=== PATIENT | female | born 1970 | race Caucasian/White ===

== ENCOUNTER 2016-04-12 12:03 | Observation (INO) | payer OTHER ==
[~2016-04-12] VITALS: Ht 167.6 cm; Wt 76.6 kg
[2016-04-12] VITALS (7 sets, daily range): BP systolic 103–125; BP diastolic 69–80; PULSE 72–86; TEMP 36.4–36.7; O2SAT 94–98; Ht 167.6 cm; Wt 76.6 kg
[~2016-04-12 12:03] MED LIST: CLOT10TR2 MT; KETO2CRE14; MOME50SP5; SNG10 PO; VYT1010 PO
[2016-04-12] MEDS ORDERED: SODIUM CHLORIDE 0.9% 1000ML 1,000 ML IV STA (12:30)
[2016-04-12 12:49] LABS: BASO % 0.3 %; BASO ABS # 0.04 K/uL (0-0.2); COMPLETE YES; EOS % 0.3 %; HEMATOCRIT 36.9 % (37-47); IG% 0.2 %; LYMPH % 16.3 %; LYMPH ABS # 2.23 K/uL (1.2-3.4); MEAN CELL VOLUME 73.9 fL (80-100); MEAN CORPUSCULAR HEMOGLOBIN 23.2 pg (25-34); MEAN CORPUSCULAR HGB CONC 31.4 g/dl (32-36); MONO % 7.7 %; NEUT % 75.2 %; PLATELET COUNT 555 K/uL (130-400); RED BLOOD COUNT 4.99 M/uL (4.2-5.4); WHITE BLOOD COUNT 13.67 K/uL (4.8-10.8)
[2016-04-12 13:15] LABS: ALT/SGPT 21 U/L (12-78); AST/SGOT 10 U/L (15-37); BLOOD UREA NITROGEN 5 mg/dl (7-18); BUN/CREATININE RATIO 5.9 (10-20); CALCIUM 9.3 mg/dl (8.5-10.1); CARBON DIOXIDE 23 mmol/L (21-32); CHLORIDE 103 mmol/L (98-107); CREATININE 0.77 mg/dl (0.60-1.20); GLUCOSE 95 mg/dl (70-99); POTASSIUM 3.6 mmol/L (3.5-5.1); SODIUM 136 mmol/L (136-145)
[2016-04-12 13:17] LABS: ALKALINE PHOSPHATASE 106 U/L (45-117)
[2016-04-12] MEDS ORDERED: FEXO1TAB58 PO (13:35)
[2016-04-12] MEDS ORDERED: PRLSR20 PO (13:35)
[2016-04-12 14:33] LABS: URINE APPEARANCE CLEAR (CLEAR); URINE BILIRUBIN NEG (NEG); URINE COLOR YELLOW; URINE NITRITE NEG (NEG); URINE PH 5.5 (4.5-7.5); UROBILINOGEN NEG (NEG); ZZUR CULT IF INDIC CLEAN CATCH NO
[2016-04-12 14:42] LABS: MANUAL MICROSCOPIC REQUIRED? NO; REVIEW REQ? NO
[2016-04-12] MEDS ORDERED: OPTIRAY 320 IV PRN (15:15)
--- NOTE | 2016-04-12 15:47 | DIAGNOSTIC IMAGING REPORT ---
CT SCAN OF THE ABDOMEN AND PELVIS WITH IV CONTRAST CLINICAL HISTORY: Right lower quadrant abdominal pain. COMPARISON STUDY: No priors. TECHNIQUE: Following the IV administration of 116 cc of Optiray 320, CT scan of the abdomen and pelvis is performed from the lung bases to the proximal femora. Images are reviewed in the axial, sagittal, and coronal planes. IV contrast was administered without complication. Automated dose control exposure was utilized. CT DOSE: 385.73 mGy.cm FINDINGS: Lung bases: The heart is normal in size and without pericardial effusion. The lung bases are clear noting dependent atelectasis. Liver: The contrast-enhanced liver is normal in size, contour, and attenuation. Focal fatty infiltration is seen adjacent to the falciform ligament. There is no intrahepatic biliary ductal dilatation. The hepatic veins and portal veins are patent. Gallbladder: Surgically absent noting clips in the gallbladder fossa. Spleen: Normal in size and attenuation. Pancreas: Unremarkable. Adrenal glands: A 1.8 cm low-attenuation right adrenal nodule meets CT criteria for a fat-containing adenoma. The left adrenal gland is normal in appearance. Kidneys: The contrast enhanced kidneys are normal in size and without hydronephrosis. The kidneys enhance symmetrically. Abdominal vasculature: The abdominal aorta is normal in course and caliber. Bowel: The small bowel and colon are normal in course and caliber. The appendix is is thick-walled, fluid-filled, and distended measuring up to 1.7 cm in diameter. This is best seen on axial image #322. There is periappendiceal inflammatory stranding and the appearance is consistent with acute appendicitis. There is no organized fluid collection to suggest abscess. Peritoneum: There is no intraperitoneal free air or abdominal ascites. There is a fat-containing umbilical hernia. Lymphadenopathy: None. Pelvic viscera: The bladder, uterus, and adnexa are normal as visualized. There are bilateral ovarian follicles. Numerous phleboliths are seen in the pelvis. Skeletal structures: No lytic or blastic lesions are seen. IMPRESSION: Findings are consistent with acute appendicitis. There is no intraperitoneal free air or evidence of abscess. Surgical consultation is advised. Electronically signed by: Jethro Vilchis M.D. 04/12/2016 3:44 PM Dictated Date/Time: 04/12/2016 3:40 PM
--- NOTE | 2016-04-12 16:41 | EMERGENCY ROOM VISIT NOTE ---
History First contact with patient: 12:21 Chief Complaint: ABDOMINAL PAIN Stated Complaint: ABDOMINAL PAIN Nursing Triage Summary: Pt presents with RLQ pain since Sat. Denies n/v/d. Seen at urgent care in [place] and sent to r/u appy. Pain in back "to my spine". Denies hx of kidney stones. Denies urinary s/sx. History of Present Illness The patient is a 45 year old female who presents to the Emergency Room with complaints of right lower quadrant pain. The patient states that she started with periumbilical abdominal pain on Tuesday but now it is located in the right lower quadrant. She admits to feeling nauseated but denies any vomiting. She had a normal bowel movement last evening. The patient denies any fever, chest pain or shortness of breath. The patient denies any urinary symptoms of frequency, urgency or dysuria or any hematuria. The patient denies any vaginal discharge. The patient states that she was seen at an urgent care in [place] and was told to come to the emergency room for evaluation of acute appendicitis. The patient's family doctor is Dr. Moura. Review of Systems 10 system review was performed and was negative unless stated otherwise history of present illness. Social History Smoking Status: Former Smoker Smokeless Tobacco Use: No Alcohol Use: none Drug Use: none Marital Status: Housing Status: lives with family Occupation Status: employed Current/Historical Medications Scheduled Fexofenadine-Pseudoephedrine (Daysi-D 24 Hour Allergy), 1 TAB PO DAILY Omeprazole (Prilosec), 20 MG PO BID Allergies Coded Allergies: Penicillins (Unverified Allergy, Severe, SWELLING AND RESPIRATORY, 04/12/16) Sulfa Drugs (Unverified Allergy, Severe, SWELLING, 04/12/16) Loratadine (Unverified Allergy, Intermediate, HIVES, 04/12/16) Moxifloxacin (Unverified Allergy, Unknown, severe swelling, 04/12/16) Physical Exam Vital Signs Date Time Temp Pulse Resp B/P Pulse Ox O2 Delivery O2 Flow Rate FiO2 04/12/16 15:45 89 18 107/62 98 Room Air 04/12/16 14:30 85 16 92/68 95 Room Air 04/12/16 13:51 79 16 111/79 97 Room Air 04/12/16 12:12 36.9 118 18 117/77 98 Room Air Physical Exam GENERAL: 45-year-old white female appears in no acute distress. MENTAL Status: Alert and oriented 3. EYES: No icterus noted MOUTH: Mucosa is moist NECK: Supple, no lymphadenopathy noted. No carotid bruits noted. LUNGS: Clear auscultation without wheezes rales or rhonchi. CARDIAC: Regular rate and rhythm without murmur. Pulses is full and equal throughout. BACK: No CVA tenderness noted. ABDOMEN: Positive bowel sounds all 4 quadrants. Soft, tenderness to palpation over the right lower quadrant with positive rebound. No organomegaly or masses noted EXTREMITIES: No cyanosis or edema noted. Medical Decision & Procedures ER Provider Diagnostic Interpretation: CT SCAN OF THE ABDOMEN AND PELVIS WITH IV CONTRAST CLINICAL HISTORY: Right lower quadrant abdominal pain. COMPARISON STUDY: No priors. TECHNIQUE: Following the IV administration of 116 cc of Optiray 320, CT scan of the abdomen and pelvis is performed from the lung bases to the proximal femora. Images are reviewed in the axial, sagittal, and coronal planes. IV contrast was administered without complication. Automated dose control exposure was utilized. CT DOSE: 385.73 mGy.cm FINDINGS: Lung bases: The heart is normal in size and without pericardial effusion. The lung bases are clear noting dependent atelectasis. Liver: The contrast-enhanced liver is normal in size, contour, and attenuation. Focal fatty infiltration is seen adjacent to the falciform ligament. There is no intrahepatic biliary ductal dilatation. The hepatic veins and portal veins are patent. Gallbladder: Surgically absent noting clips in the gallbladder fossa. Spleen: Normal in size and attenuation. Pancreas: Unremarkable. Adrenal glands: A 1.8 cm low-attenuation right adrenal nodule meets CT criteria for a fat-containing adenoma. The left adrenal gland is normal in appearance. Kidneys: The contrast enhanced kidneys are normal in size and without hydronephrosis. The kidneys enhance symmetrically. Abdominal vasculature: The abdominal aorta is normal in course and caliber. Bowel: The small bowel and colon are normal in course and caliber. The appendix is is thick-walled, fluid-filled, and distended measuring up to 1.7 cm in diameter. This is best seen on axial image #322. There is periappendiceal inflammatory stranding and the appearance is consistent with acute appendicitis. There is no organized fluid collection to suggest abscess. Peritoneum: There is no intraperitoneal free air or abdominal ascites. There is a fat-containing umbilical hernia. Lymphadenopathy: None. Pelvic viscera: The bladder, uterus, and adnexa are normal as visualized. There are bilateral ovarian follicles. Numerous phleboliths are seen in the pelvis. Skeletal structures: No lytic or blastic lesions are seen. IMPRESSION: Findings are consistent with acute appendicitis. There is no intraperitoneal free air or evidence of abscess. Surgical consultation is advised. Electronically signed by: Jethro Vilchis M.D. 04/12/2016 3:44 PM Dictated Date/Time: 04/12/2016 3:40 PM Laboratory Results 04/12/16 12:38 Red Blood Count 4.99, Mean Corpuscular Volume 73.9, Mean Corpuscular Hemoglobin 23.2, Mean Corpuscular Hemoglobin Concent 31.4, Mean Platelet Volume 9.0, Neutrophils (%) (Auto) 75.2, Lymphocytes (%) (Auto) 16.3, Monocytes (%) (Auto) 7.7, Eosinophils (%) (Auto) 0.3, Basophils (%) (Auto) 0.3, Neutrophils # (Auto) 10.28, Lymphocytes # (Auto) 2.23, Monocytes # (Auto) 1.05, Eosinophils # (Auto) 0.04, Basophils # (Auto) 0.04 04/12/16 12:38 Test 04/12/16 12:38 04/12/16 13:52 White Blood Count 13.67 K/uL (4.8-10.8) Red Blood Count 4.99 M/uL (4.2-5.4) Hemoglobin 11.6 g/dL (12.0-16.0) Hematocrit 36.9 % (37-47) Mean Corpuscular Volume 73.9 fL (80-100) Mean Corpuscular Hemoglobin 23.2 pg (25-34) Mean Corpuscular Hemoglobin Concent 31.4 g/dl (32-36) Platelet Count 555 K/uL (130-400) Mean Platelet Volume 9.0 fL (7.4-10.4) Neutrophils (%) (Auto) 75.2 % Lymphocytes (%) (Auto) 16.3 % Monocytes (%) (Auto) 7.7 % Eosinophils (%) (Auto) 0.3 % Basophils (%) (Auto) 0.3 % Neutrophils # (Auto) 10.28 K/uL (1.4-6.5) Lymphocytes # (Auto) 2.23 K/uL (1.2-3.4) Monocytes # (Auto) 1.05 K/uL (0.11-0.59) Eosinophils # (Auto) 0.04 K/uL (0-0.5) Basophils # (Auto) 0.04 K/uL (0-0.2) RDW Standard Deviation 40.3 fL (36.4-46.3) RDW Coefficient of Variation 15.3 % (11.5-14.5) Immature Granulocyte % (Auto) 0.2 % Immature Granulocyte # (Auto) 0.03 K/uL (0.00-0.02) Anion Gap 10.0 mmol/L (3-11) Est Creatinine Clear Calc Drug Dose 98.4 ml/min Estimated GFR () 109.6 Estimated GFR (Non- 94.6 BUN/Creatinine Ratio 5.9 (10-20) Calcium Level 9.3 mg/dl (8.5-10.1) Total Bilirubin 0.3 mg/dl (0.2-1) Direct Bilirubin < 0.1 mg/dl (0-0.2) Aspartate Amino Transf (AST/SGOT) 10 U/L (15-37) Alanine Aminotransferase (ALT/SGPT) 21 U/L (12-78) Alkaline Phosphatase 106 U/L (45-117) Total Protein 8.4 gm/dl (6.4-8.2) Albumin 4.0 gm/dl (3.4-5.0) Lipase 112 U/L (73-393) Urine Color YELLOW Urine Appearance CLEAR (CLEAR) Urine pH 5.5 (4.5-7.5) Urine Specific [place] 1.000 (1.000-1.030) Urine Protein NEG (NEG) Urine Glucose (UA) NEG (NEG) Urine Ketones NEG (NEG) Urine Occult Blood NEG (NEG) Urine Nitrite NEG (NEG) Urine Bilirubin NEG (NEG) Urine Urobilinogen NEG (NEG) Urine Leukocyte Esterase NEG (NEG) Medications Administered Medications (Trade) Dose Ordered Sig/Dominguez Route Start Time Stop Time Status Last Admin Dose Admin Sodium Chloride (Nss 1000ml) 1,000 ml @ 999 mls/hr Q1H1M STAT IV 04/12/16 12:30 04/12/16 13:30 DC 04/12/16 12:37 999 MLS/HR ED Course The patient was evaluated. IV access was obtained. The patient was given 1 L normal saline wide-open. CBC and differential, renal profile, LFTs and lipase levels were ordered. Urinalysis was ordered. Labs are reviewed. The patient' s white count was elevated at 13,000. Her hemoglobin and hematocrit were slightly low. The patient was offered pain medication but declined. A CT of the abdomen and pelvis with IV and oral contrast was ordered. CT of the abdomen and pelvis was interpreted by the radiologist as above with sinus consistent with acute appendicitis. The patient was informed of the findings. Dr. Vasquez was consulted and will come evaluate the patient. Medical Decision Differential diagnoses include reflux, gastritis, gastroenteritis, pancreatitis , appendicitis, mesenteric ischemia, pyelonephritis, urinary tract infection, renal colic, diverticulitis, shingles, bowel obstruction, intussusception, hernia, ovarian torsion, ruptured ovarian cyst, ectopic , . Impression Primary Impression: Appendicitis Departure Information Dispostion Being Evaluated By Surgeon Condition GOOD Referrals No Doctor, Assigned (PCP) Patient Instructions A Signature Page
[2016-04-12] MEDS ORDERED: ROCURONIUM BROMIDE 10 MG/ML 5 ML VIAL ONE ×2 (16:50→18:01)
[2016-04-12] MEDS ORDERED: DEXAMETHASONE SOD INJ 4 MG/ML VIAL ONE ×2 (16:50→18:01)
[2016-04-12] MEDS ORDERED: ONDANSETRON INJ 2 MG/ML 2 ML VIAL ONE ×2 (16:50→18:01)
[2016-04-12] MEDS ORDERED: LIDOCAINE HCL 2% 2 ML VIAL (20MG/ML) ONE ×2 (16:50→18:01)
[2016-04-12] MEDS ORDERED: PROPOFOL IV EMULSION 10 MG/ML 20 ML VIAL IV ONE ×2 (16:50→18:01)
--- NOTE | 2016-04-12 16:53 | History and Physical ---
History & Physical Date Apr 12, 2016. Chief Complaint abd pain History of Present Illness The patient is a 45 year old female with complaints of abd pain over 1-[address] evidence of acute appendicitis Additional History Hepatic Disease: No Endocrine Disorder: No Kidney Disease: No Hypertension: No Heart Disease: No Bleeding Tendencies: No Other: pt told me she is allergic to Amoxicillin , not Moxifloxicin Allergies Coded Allergies: Penicillins (Unverified Allergy, Severe, SWELLING AND RESPIRATORY, 04/12/16) Sulfa Drugs (Unverified Allergy, Severe, SWELLING, 04/12/16) Loratadine (Unverified Allergy, Intermediate, HIVES, 04/12/16) Moxifloxacin (Unverified Allergy, Unknown, severe swelling, 04/12/16) Home Medications Scheduled Fexofenadine-Pseudoephedrine (Daysi-D 24 Hour Allergy), 1 TAB PO DAILY Omeprazole (Prilosec), 20 MG PO BID Physical Examination Skin: warm/dry Eyes: sclerae normal Head: normocephalic Neck: supple Respiratory/Chest: no respiratory distress Cardiovascular: regular rate, rhythm Abdomen / GI: + pertinent finding (RLQ tenderness) Extremities: normal inspection Neurologic/Psych: alert Diagnosis acute appendicitis Plan of Treatment for Laparoscopic appendectomy, possible open operation
[2016-04-12] MEDS ORDERED: CIPROFLOXACIN 400MG / 200ML D5W ONE (16:58)
[2016-04-12] MEDS ORDERED: METRONIDAZOLE / NSS 500 MG in PREMIXED NSS 100 ML IV SCH (17:00)
[2016-04-12] MEDS ORDERED: CIPROFLOXACIN / D5W 400 MG in PREMIXED IN D5W 200 ML IV SCH (17:00)
[2016-04-12] MEDS ORDERED: HYDROmorphone INJ 1 MG/ML SYR IV PRN (17:30)
[2016-04-12] MEDS ORDERED: ATROPINE SULFATE 0.1 MG/ML 5ML SYR IV PRN (17:30)
[2016-04-12] MEDS ORDERED: ONDANSETRON INJ 2 MG/ML 2 ML VIAL IV PRN ×2 (17:30→18:45)
[2016-04-12] MEDS ORDERED: EpHEDrine SULFATE INJ 50 MG/ML AMP IV PRN (17:30)
[2016-04-12] MEDS ORDERED: MIDAZOLAM HCL 1 MG/ML 2ML VIAL ONE (17:32)
[2016-04-12] MEDS ORDERED: FENTANYL CITRATE INJ 50 MCG/1 ML 2 ML VIAL ONE ×2 (17:33→18:31)
[2016-04-12] MEDS ORDERED: NEOSTIGMINE METHYLSULFATE 5 MG/5 ML SYR ONE (18:01)
[2016-04-12] MEDS ORDERED: SUCCINYLCHOLINE CHLORIDE 20 MG/ML 10 ML VIAL IV ONE (18:01)
[2016-04-12] MEDS ORDERED: GLYCOPYRROLATE INJ 0.2 MG/ML VIAL ONE (18:01)
[2016-04-12] MEDS ORDERED: BUPIVACAINE 0.5 % 5 MG/1 ML MPF 30ML VIAL INJ ONE (18:28)
[2016-04-12] MEDS: LACTATED RINGER'S 1000ML 1,000 ML IV SCH (18:36)
--- NOTE | 2016-04-12 18:36 | [facility] Operative Report ---
Operative Report Operative Date Apr 12, 2016. Pre-Operative Diagnosis Acute Appendicitis Post-Operative Diagnosis same Procedure(s) Performed lap appendectomy Surgeon Dr. Vasquez Internal Communications Specialist Surgeon(s) None Findings non perforated acute appendicitis Specimens A. Appendix Anesthesia gen Complication(s) None Disposition Recovery Room / PACU I attest to the content of the Intraoperative Record and any orders documented therein. Any exceptions are noted below.
[2016-04-12] MEDS ORDERED: PROMETHAZINE HCL INJ 25 MG in SODIUM CHLORIDE 0.9% 50ML 50 ML IV PRN (18:45)
[2016-04-12] MEDS ORDERED: MoRPHine SULFATE 2 MG/ML CARP IV PRN (18:45)
[2016-04-12] MEDS ORDERED: HYDR-5688 PO (18:45)
[2016-04-12] MEDS ORDERED: HYDROCODONE/ACETAMOPHEN 5/325MG TAB PO PRN ×2 (18:45)
[2016-04-12] MEDS ORDERED: MoRPHine SULFATE 4 MG/ML 1 ML CARP\\VIAL IV PRN (18:45)
--- NOTE | 2016-04-12 18:47 | Discharge Instructions ---
Discharge Instructions Admission Reason for Admission: Abdominal Pain Discharge Discharge Diagnosis / Problem: appendicitis Discharge Goals Goal(s): Decrease discomfort, Improve function, Improve disease control Activity Recommendations Activity Limitations: as noted below Lifting Limitations: no more than 10 pounds Exercise/Sports Limitations: until after follow-up appointment May Resume Sexual Activity: when tolerated Shower/Bathe: keep incision dry (may shower over incision Wed 04/14) Driving or Machine Use: resume 3 days after discharge . Instructions / Follow-Up Instructions / Follow-Up SPECIAL CARE INSTRUCTIONS: * Cover incisions and change daily for comfort/drainage. may leave uncovered with dermabond * Leave steri strips in place * May use ibuprofen for pain as tolerated. * Expect some swelling and bruising. Call your doctor if: * Temperature above 101 degrees * Pain not relieved by pain medicine ordered * There is increased drainage or redness from any incision * You have any unanswered questions or concerns [phone]. FOLLOW UP VISIT: If not already scheduled, please call the office for a follow-up visit. for 2 weeks- check up OFFICE PHONE NUMBER: Dr. Vasquez Office Current Hospital Diet Patient's current hospital diet: Regular Diet Discharge Diet Recommended Diet: Regular Diet Procedures Procedures Performed: Laparoscopic Appendectomy Pending Studies Studies pending at discharge: no Medical Emergencies . Who to Call and When: Medical Emergencies: If at any time you feel your situation is an emergency, please call 911 immediately. . Non-Emergent Contact Non-Emergency issues call your: Surgeon . "Provider Documentation" section prepared by Scott Vasquez. VTE Core Measure Inpt VTE Proph given/why not?: SCD's
--- NOTE | 2016-04-12 18:50 | OPERATIVE REPORT ---
DATE OF OPERATION: 04/12/2016 NAME OF OPERATION: Laparoscopic appendectomy. PREOPERATIVE DIAGNOSIS: Acute appendicitis. POSTOPERATIVE DIAGNOSIS: Same. STAFF SURGEON: Scott Vasquez MD ANESTHESIA: General. PROCEDURE: The patient was brought in the operating room and placed on the operating table in supine position. Flores catheter was placed. Her abdomen was prepped and draped in usual fashion. Using 0.5% plain Marcaine, all incisions were anesthetized. Incision was made above the umbilicus, carrying dissection down to the fascia, placing a Veress needle producing pneumoperitoneum. A 5 mm port was placed at this level and under visualization, a second 5 mm port was placed suprapubically and a 12 mm port placed in the left lower quadrant. On inspection and examination, the appendix was identified, it was thickened and inflamed. The base of the appendix was dissected using a [place] dissector and then an Endo-RADHA used to transect the base. Mesoappendix was then dissected free and then transected using Endo-RADHA. After appropriate irrigation and hemostasis, the appendix was placed in an Endobag and removed through the 12 mm site. All ports were then removed. The 12 mm site closed using 0 Vicryl suture and then the skin reapproximated using subcuticular 4-0 Monocryl and Dermabond for the umbilical and suprapubic area and Steri-Strips for the left lower quadrant. The patient was transferred to recovery room in stable condition. There was no abscess noted. I attest to the content of the Intraoperative Record and any orders documented therein. Any exceptio ns are noted below.
[2016-04-12] MEDS: FENTANYL CITRATE INJ 50 MCG/1 ML 2 ML VIAL IV PRN ×2 (18:57→19:02)
--- NOTE | 2016-04-12 19:04 | Anesthesiology Progress Note ---
Anesthesia Post Op Note Date & Time Apr 12, 2016 at 19:04 Vital Signs Pain Intensity: 5.0 Vital Signs Past 12 Hours Date Time Temp Pulse Resp B/P Pulse Ox O2 Delivery O2 Flow Rate FiO2 04/12/16 18:55 78 18 120/77 100 Mask 10 04/12/16 18:45 86 17 126/81 100 Mask 10 04/12/16 18:43 36.2 88 17 125/82 99 Mask 10 04/12/16 15:45 89 18 107/62 98 Room Air 04/12/16 14:30 85 16 92/68 95 Room Air 04/12/16 13:51 79 16 111/79 97 Room Air 04/12/16 12:12 36.9 118 18 117/77 98 Room Air Notes Mental Status: alert / awake / arousable, participated in evaluation Pt Amnestic to Procedure: Yes Nausea / Vomiting: adequately controlled Pain: adequately controlled Airway Patency, RR, SpO2: stable & adequate BP & HR: stable & adequate Hydration State: stable & adequate Anesthetic Complications: no major complications apparent
[2016-04-12] MEDS ORDERED: IV FLUIDS COMPLETED PRN (20:00)
[2016-04-12] MEDS: PANTOprazole SOD 40 MG TAB PO SCH (21:59)
[2016-04-12] MEDS: CEFOXITIN IV 1,000 MG in DEXTROSE 5% 50ML 50 ML IV SCH (21:59)
[2016-04-13 03:00] VITALS: BP 93/61; PULSE 78; TEMP 36.8; O2SAT 94
[2016-04-13] MEDS: CEFOXITIN IV 1,000 MG in DEXTROSE 5% 50ML 50 ML IV SCH (06:00)
--- NOTE | 2016-04-13 06:16 | Surgery Progress Note ---
Surgery Progress Note Date of Service Apr 13, 2016. Subjective + diet (tolerating food), + feeling well, No nausea, No vomiting Objective Vital Signs: Date Time Temp Pulse Resp B/P Pulse Ox O2 Delivery O2 Flow Rate FiO2 04/13/16 03:00 36.8 78 18 93/61 94 Room Air 04/12/16 23:12 36.7 86 18 103/69 94 Room Air 04/12/16 22:30 36.6 80 18 125/79 96 Room Air 04/12/16 21:37 36.5 74 18 122/75 95 Room Air 04/12/16 20:30 36.6 83 18 119/80 96 Nasal Cannula 2.0 04/12/16 20:00 36.4 73 18 115/72 96 Nasal Cannula 2.0 04/12/16 19:30 Nasal Cannula 2.0 04/12/16 19:30 Nasal Cannula 2.0 04/12/16 19:30 36.5 72 18 113/72 96 Nasal Cannula 2.0 04/12/16 19:15 36.2 89 18 121/72 100 Nasal Cannula 2 04/12/16 19:05 82 18 123/82 100 Nasal Cannula 2 04/12/16 18:55 78 18 120/77 100 Mask 10 04/12/16 18:45 86 17 126/81 100 Mask 10 04/12/16 18:43 36.2 88 17 125/82 99 Mask 10 04/12/16 15:45 89 18 107/62 98 Room Air 04/12/16 14:30 85 16 92/68 95 Room Air 04/12/16 13:51 79 16 111/79 97 Room Air 04/12/16 12:12 36.9 118 18 117/77 98 Room Air General Appearance: no apparent distress Respiratory/Chest: no respiratory distress Abdomen: non distended, soft Incision(s): dry, intact Laboratory Results: Results Past 24 Hours Test 04/12/16 12:38 04/12/16 13:52 Range/Units White Blood Count 13.67 4.8-10.8 K/uL Red Blood Count 4.99 4.2-5.4 M/uL Hemoglobin 11.6 12.0-16.0 g/dL Hematocrit 36.9 37-47 % Mean Corpuscular Volume 73.9 80-100 fL Mean Corpuscular Hemoglobin 23.2 25-34 pg Mean Corpuscular Hemoglobin Concent 31.4 32-36 g/dl Platelet Count 555 130-400 K/uL Mean Platelet Volume 9.0 7.4-10.4 fL Neutrophils (%) (Auto) 75.2 % Lymphocytes (%) (Auto) 16.3 % Monocytes (%) (Auto) 7.7 % Eosinophils (%) (Auto) 0.3 % Basophils (%) (Auto) 0.3 % Neutrophils # (Auto) 10.28 1.4-6.5 K/uL Lymphocytes # (Auto) 2.23 1.2-3.4 K/uL Monocytes # (Auto) 1.05 0.11-0.59 K/uL Eosinophils # (Auto) 0.04 0-0.5 K/uL Basophils # (Auto) 0.04 0-0.2 K/uL RDW Standard Deviation 40.3 36.4-46.3 fL RDW Coefficient of Variation 15.3 11.5-14.5 % Immature Granulocyte % (Auto) 0.2 % Immature Granulocyte # (Auto) 0.03 0.00-0.02 K/uL Sodium Level 136 136-145 mmol/L Potassium Level 3.6 3.5-5.1 mmol/L Chloride Level 103 98-107 mmol/L Carbon Dioxide Level 23 21-32 mmol/L Anion Gap 10.0 3-11 mmol/L Blood Urea Nitrogen 5 7-18 mg/dl Creatinine 0.77 0.60-1.20 mg/dl Est Creatinine Clear Calc Drug Dose 98.4 ml/min Estimated GFR () 109.6 Estimated GFR (Non- 94.6 BUN/Creatinine Ratio 5.9 10-20 Random Glucose 95 70-99 mg/dl Calcium Level 9.3 8.5-10.1 mg/dl Total Bilirubin 0.3 0.2-1 mg/dl Direct Bilirubin < 0.1 0-0.2 mg/dl Aspartate Amino Transf (AST/SGOT) 10 15-37 U/L Alanine Aminotransferase (ALT/SGPT) 21 12-78 U/L Alkaline Phosphatase 106 45-117 U/L Total Protein 8.4 6.4-8.2 gm/dl Albumin 4.0 3.4-5.0 gm/dl Lipase 112 73-393 U/L Urine Color YELLOW Urine Appearance CLEAR CLEAR Urine pH 5.5 4.5-7.5 Urine Specific [place] 1.000 1.000-1.030 Urine Protein NEG NEG Urine Glucose (UA) NEG NEG Urine Ketones NEG NEG Urine Occult Blood NEG NEG Urine Nitrite NEG NEG Urine Bilirubin NEG NEG Urine Urobilinogen NEG NEG Urine Leukocyte Esterase NEG NEG Assessment & Plan 04/13/16- s/p laparoscopic appendectomy- doing well for d/c home this am, no atbx at home
[2016-04-13] MEDS: LACTATED RINGER'S 1000ML 1,000 ML IV SCH (07:56)
[2016-04-13 08:04] VITALS: BP 99/64; PULSE 93; TEMP 36.7; O2SAT 93
[2016-04-13] MEDS: PANTOprazole SOD 40 MG TAB PO SCH (08:36)
--- NOTE | 2016-04-13 09:50 | Anesthesiology Progress Note ---
Anesthesia Post Op Note Date & Time Apr 13, 2016 at 09:49 Vital Signs Pain Intensity: 0.0 Vital Signs Past 12 Hours Date Time Temp Pulse Resp B/P Pulse Ox O2 Delivery O2 Flow Rate FiO2 04/13/16 08:04 36.7 93 16 99/64 93 Room Air 04/13/16 07:25 Room Air 04/13/16 03:00 36.8 78 18 93/61 94 Room Air 04/12/16 23:12 36.7 86 18 103/69 94 Room Air 04/12/16 22:30 36.6 80 18 125/79 96 Room Air Notes Mental Status: alert / awake / arousable, participated in evaluation Pt Amnestic to Procedure: Yes Nausea / Vomiting: adequately controlled Pain: adequately controlled Airway Patency, RR, SpO2: stable & adequate BP & HR: stable & adequate Hydration State: stable & adequate Anesthetic Complications: no major complications apparent
[2016-04-13 10:11] VITALS: BP 99/64; PULSE 93; TEMP 36.7; O2SAT 93
--- NOTE | 2016-04-20 10:48 | DISCHARGE SUMMARY ---
PRIMARY DISCHARGE DIAGNOSIS: Acute appendicitis. PROCEDURE PERFORMED: Laparoscopic appendectomy. HOSPITAL COURSE: The patient is a 45-year-old female who presented to the Emergency Department with 2 days of abdominal pain. Her white count was 13,000. CT was consistent with acute appendicitis. She was taken to the operating room that evening for laparoscopic appendectomy. Procedure was well tolerated. She was transferred to the surgical floor for overnight observation. In the morning, she was tolerating diet and oral analgesics. Her abdomen was benign. She was stable for discharge. DISCHARGE INSTRUCTIONS: Discharge home. Follow up with Dr. Vasquez in 2 weeks. DISCHARGE MEDICATIONS: [place] 1-2 tablets every 6 hours as needed; resume her home medications Prilosec 20 mg b.i.d., and Daysi-D 1 tablet daily.
== END 2016-04-13 10:25 | disposition home or self-care (01) ==
LOC: ENRESERVDT → ENRESERVTM → C.EDB 12:08 → C.3E 18:40
PROVIDERS: ADMIT Surgery; ATTEND Surgery
DX: K35.80 Unspecified acute appendicitis (principal); K42.9 Umbilical hernia without obstruction or gangrene; K76.0 Fatty (change of) liver, not elsewhere classified; Z87.891 Personal history of nicotine dependence

== ENCOUNTER 2016-05-26 17:19 | Emergency (ER) | payer OTHER ==
[~2016-05-26] VITALS: Ht 167.6 cm; Wt 75.7 kg
[~2016-05-26 17:19] MED LIST changes: -CLOT10TR2 MT; +FEXO1TAB58 PO; +HYDR-5688 PO; -KETO2CRE14; -MOME50SP5; +PRLSR20 PO; -SNG10 PO; -VYT1010 PO
[2016-05-26 17:27] VITALS: TEMP 36.4; Ht 167.6 cm; Wt 75.7 kg
[2016-05-26 17:55] VITALS: O2SAT 99
[2016-05-26] MEDS ORDERED: ASPIRIN 324 MG CHEW PO STA (18:07)
[2016-05-26 18:26] LABS: BASO % 0.4 %; BASO ABS # 0.04 K/uL (0-0.2); COMPLETE YES; EOS % 1.7 %; HEMATOCRIT 34.5 % (37-47); IG% 0.4 %; LYMPH % 26.9 %; LYMPH ABS # 2.57 K/uL (1.2-3.4); MEAN CELL VOLUME 74.4 fL (80-100); MEAN CORPUSCULAR HEMOGLOBIN 23.7 pg (25-34); MEAN CORPUSCULAR HGB CONC 31.9 g/dl (32-36); MEAN PLATELET VOLUME 9.4 fL (7.4-10.4); MONO % 9.3 %; NEUT % 61.3 %; PLATELET COUNT 456 K/uL (130-400); RED BLOOD COUNT 4.64 M/uL (4.2-5.4); WHITE BLOOD COUNT 9.54 K/uL (4.8-10.8)
--- NOTE | 2016-05-26 18:41 | DIAGNOSTIC IMAGING REPORT ---
CHEST ONE VIEW PORTABLE HISTORY: Dyspnea and Chest pain, left COMPARISON: Chest 04/28/2008. FINDINGS: The lungs are clear. Cardiac silhouette is normal in size. No pleural effusions. No pneumothorax. Stable left hilar prominence. IMPRESSION: No significant change compared to the prior study. No acute process. Electronically signed by: Clement Villegas M.D. 05/26/2016 6:40 PM Dictated Date/Time: 05/26/2016 6:39 PM
[2016-05-26 18:48] LABS: ALT/SGPT 17 U/L (12-78); AST/SGOT 10 U/L (15-37); BLOOD UREA NITROGEN 2 mg/dl (7-18); BUN/CREATININE RATIO 3.4 (10-20); CALCIUM 8.4 mg/dl (8.5-10.1); CARBON DIOXIDE 26 mmol/L (21-32); CHLORIDE 104 mmol/L (98-107); CREATININE 0.65 mg/dl (0.60-1.20); GLUCOSE 80 mg/dl (70-99); MAGNESIUM 2.1 mg/dl (1.8-2.4); POTASSIUM 3.6 mmol/L (3.5-5.1); SODIUM 139 mmol/L (136-145)
[2016-05-26] MEDS ORDERED: FEXO1TAB49 PO (18:52)
[2016-05-26 18:58] LABS: ALB/GLOB RATIO 0.9 (0.9-2); ALKALINE PHOSPHATASE 97 U/L (45-117)
[2016-05-26] MEDS ORDERED: OPTIRAY 320 IV PRN (19:15)
[2016-05-26 19:31] LABS: URINE APPEARANCE CLEAR (CLEAR); URINE BILIRUBIN NEG (NEG); URINE COLOR YELLOW; URINE NITRITE NEG (NEG); URINE PH 7.5 (4.5-7.5); UROBILINOGEN NEG (NEG); ZZUR CULT IF INDIC CLEAN CATCH NO
[2016-05-26 19:36] LABS: MANUAL MICROSCOPIC REQUIRED? NO; REVIEW REQ? NO
--- NOTE | 2016-05-26 19:39 | DIAGNOSTIC IMAGING REPORT ---
CHEST CTA for PULMONARY ARTERIES CT DOSE: 302.77 mGy.cm HISTORY: Atypical chest pain. Elevated d-dimer. TECHNIQUE: Multiaxial CT images of the chest were performed following the intravenous administration of contrast to evaluate the pulmonary arteries. Maximal intensity projection images were also obtained. COMPARISON STUDY: Chest 05/26/2016. FINDINGS: There is a normal caliber thoracic aorta with no evidence for dissection. There is no evidence for pulmonary embolus. No pleural effusions. No pneumothorax. The liver and spleen are unremarkable. No mediastinal or hilar lymphadenopathy. The central airways are patent. Groundglass densities within the lower lobes posteriorly favor mild dependent change. A 3.7 mm pulmonary nodule within the right middle lobe on image 60. A 5 mm nodule within the lingula on image 41. Cholecystectomy. IMPRESSION: 1. No evidence for bone embolus. 2. Subcentimeter pulmonary nodules with the largest in the lingula measuring 5 mm. Please refer to the chart below for recommended follow-up. Please refer to below summary of Fleischner criteria recommendations for follow-up of incidental CT nodules (Bhanu Bains, Guidelines for management of small pulmonary nodules detected on CT scans: A statement from the Fleischner Society, Radiology 237: [id number].) Low Risk Patient: Minimal or no smoking or other known risk factors for malignancy <=4 mm: No follow-up needed. >4-6 mm: Initial follow-up CT at 12 months; if unchanged, no further follow-up. >6-8 mm: Initial follow-up CT at 6-12 months then at 18-24 months if no change. >8 mm: Follow-up CT at \R\3, 9, 24 months, or PET and/or biopsy. High Risk Patient: History of smoking or other known risk factors <=4 mm: Follow-up at 12 months; if unchanged, no further follow-up. >4-6 mm: Initial follow-up CT at 6-12 months then at 18-24 months if no change. >6-8 mm: Initial follow-up CT at 3-6 months then at 9-12 and 24 months if no change. >8 mm: Same as low risk patient. Note: Nodule size measured as average of length and width. Ground glass or partly solid nodules may require longer follow-up to exclude indolent adenocarcinoma. Electronically signed by: Clement Villegas M.D. 05/26/2016 7:37 PM Dictated Date/Time: 05/26/2016 7:29 PM
[2016-05-26 19:50] LABS: PARTIAL THROMBOPLASTIN RATIO 1.1; PROTHROMBIN TIME (PATIENT) 10.4 SECONDS (9.0-12.0)
--- NOTE | 2016-05-26 20:21 | EMERGENCY ROOM VISIT NOTE ---
History First contact with patient: 17:52 Chief Complaint: CHEST PAIN Stated Complaint: CHEST PAIN, PAIN IN ARM & NECK, SOB, DIZZY Nursing Triage Summary: pt reports L side chest pain that started on Tuesday , denies cough or congestion, describes as a dull ache and radiates into back and L arm pt denies injury History of Present Illness The patient is a 45 year old female who presents to the Emergency Room via private vehicle accompanied by male with complaints of "chest pain, pain in arm , neck, shortness of breath, dizzy". The patient states that Tuesday night and Tuesday morning she felt achy head to toe, and then develop chest pain and left anterior chest that slowly progressed since then. She describes the pain as dull initially, which has progressed a sharp pain under left breast that radiates into her left scapular region and into her neck. She rates the pain as a 5-6/10. There has been associated shortness of breath and cough. Patient is a former smoker. She admits to associated fevers and chills. She also notes that 2 weeks ago she had a constant pain behind left knee, and had ultrasound performed by her family doctor which revealed no blood clots. She denies any recent trauma, injury, heart history, blood clots, recent travel. Review of Systems A complete 10-point Review of Systems was discussed with the patient, with pertinent positives and negatives listed in the History of Present Illness. All remaining Review of Systems questions can be considered negative unless otherwise specified. Past Medical/Surgical History Acid reflux Family History Heart disease, cancer. Social History Smoking Status: Former Smoker Alcohol Use: none Drug Use: none Marital Status: Housing Status: lives with family Occupation Status: employed Social History: Patient lives at home. Current/Historical Medications Scheduled Fexofenadine Hcl (Daysi Allergy), 180 MG PO QAM Omeprazole (Prilosec), 20 MG PO BID Allergies Coded Allergies: Penicillins (Verified Allergy, Severe, SWELLING AND RESPIRATORY, 05/26/16) Sulfa Drugs (Verified Allergy, Severe, SWELLING, 05/26/16) Latex (Verified Allergy, Intermediate, RASH, 05/26/16) Loratadine (Verified Allergy, Intermediate, HIVES, 05/26/16) Moxifloxacin (Verified Allergy, Intermediate, swelling/SOB, 05/26/16) Amoxicillin (Verified Allergy, Unknown, SWELLING, 05/26/16) Physical Exam Vital Signs Date Time Temp Pulse Resp B/P Pulse Ox O2 Delivery O2 Flow Rate FiO2 05/26/16 20:55 84 19 124/77 97 05/26/16 20:08 84 19 124/77 97 Room Air 05/26/16 18:29 86 05/26/16 18:28 107/72 05/26/16 18:19 87 18 95 05/26/16 17:59 128/80 05/26/16 17:55 99 Room Air 05/26/16 17:27 36.4 98 18 129/87 98 Room Air Physical Exam VITAL SIGNS - Vital signs and nursing notes were reviewed. Patient is afebrile , normotensive, non-tachycardic and saturating well on room air 98%. GENERAL -45-year-old female appearing her stated age who is in no acute distress. Communicates well with provider and answers questions appropriately. SKIN - Without rashes. No petechial rashes. HEAD - NC/AT. EYES - PERRL with EOMI bilaterally. Sclera anicteric. Palpebral conjunctiva pink and moist with no injection noted. EARS - No deformities of external structures noted on gross examination bilaterally. No pain elicited with palpation of the tragus bilaterally. External auditory canals without discharge or otorrhea. Tympanic membranes pearly matos without retraction or bulging. No fluid or purulent material visualized behind the TM. Handle of malleus, umbo, cone of light, pars tensa/ flaccid all easily visualized. NOSE - Midline and without cyanosis. No epistaxis or purulent drainage noted. Septum midline without deviation or septal hematoma noted. MOUTH/OROPHARYNX - Without perioral cyanosis. Buccal mucosa pink and moist and without leukoplakia. Tongue midline with equal elevation of palate bilaterally. No tonsillar hypertrophy, erythema, or exudates noted. Good dentition noted. NECK - Neck with FROM. Supple to palpation. No lymphadenopathy noted. No nuchal rigidity. LUNGS - Chest wall symmetric without accessory muscle use, intercostals retractions, or central cyanosis. Normal vesicular breath sounds CTA B/L. No wheezes, rales, or rhonchi appreciated. CARDIAC - RRR with S1/S2. No murmur, rubs, or gallops appreciated. ABDOMEN - Abdominal contour without pulsations or visible masses. BS normoactive all four quadrants. No tenderness, palpable masses, hepatosplenomegaly, or ascites noted. EXTREMITIES - No clubbing or peripheral cyanosis. No pretibial edema present. +5 /5 strength noted in UE/LE bilaterally. NEUROLOGIC - Cranial nerves II through XII grossly intact. Sensory intact to light touch throughout. PSYCH - A&Ox3 and cooperates fully with examiner. Pt is very pleasant and interacts well with examiner. Medical Decision & Procedures ER Provider Diagnostic Interpretation: CHEST ONE VIEW PORTABLE HISTORY: Dyspnea and Chest pain, left COMPARISON: Chest 04/28/2008. FINDINGS: The lungs are clear. Cardiac silhouette is normal in size. No pleural effusions. No pneumothorax. Stable left hilar prominence. IMPRESSION: No significant change compared to the prior study. No acute process. Electronically signed by: Clement Villegas M.D. 05/26/2016 6:40 PM Dictated Date/Time: 05/26/2016 6:39 PM CHEST CTA for PULMONARY ARTERIES CT DOSE: 302.77 mGy.cm HISTORY: Atypical chest pain. Elevated d-dimer. TECHNIQUE: Multiaxial CT images of the chest were performed following the intravenous administration of contrast to evaluate the pulmonary arteries. Maximal intensity projection images were also obtained. COMPARISON STUDY: Chest 05/26/2016. FINDINGS: There is a normal caliber thoracic aorta with no evidence for dissection. There is no evidence for pulmonary embolus. No pleural effusions. No pneumothorax. The liver and spleen are unremarkable. No mediastinal or hilar lymphadenopathy. The central airways are patent. Groundglass densities within the lower lobes posteriorly favor mild dependent change. A 3.7 mm pulmonary nodule within the right middle lobe on image 60. A 5 mm nodule within the lingula on image 41. Cholecystectomy. IMPRESSION: 1. No evidence for bone embolus. 2. Subcentimeter pulmonary nodules with the largest in the lingula measuring 5 mm. Please refer to the chart below for recommended follow-up. Please refer to below summary of Fleischner criteria recommendations for follow-up of incidental CT nodules (Bhanu Bains, Guidelines for management of small pulmonary nodules detected on CT scans: A statement from the Fleischner Society, Radiology 237: [phone].) Low Risk Patient: Minimal or no smoking or other known risk factors for malignancy <=4 mm: No follow-up needed. >4-6 mm: Initial follow-up CT at 12 months; if unchanged, no further follow-up. >6-8 mm: Initial follow-up CT at 6-12 months then at 18-24 months if no change. >8 mm: Follow-up CT at \\R\\3, 9, 24 months, or PET and/or biopsy. High Risk Patient: History of smoking or other known risk factors <=4 mm: Follow-up at 12 months; if unchanged, no further follow-up. >4-6 mm: Initial follow-up CT at 6-12 months then at 18-24 months if no change. >6-8 mm: Initial follow-up CT at 3-6 months then at 9-12 and 24 months if no change. >8 mm: Same as low risk patient. Note: Nodule size measured as average of length and width. Ground glass or partly solid nodules may require longer follow-up to exclude indolent adenocarcinoma. Electronically signed by: Clement Villegas M.D. 05/26/2016 7:37 PM Dictated Date/Time: 05/26/2016 7:29 PM Laboratory Results 05/26/16 18:15 Red Blood Count 4.64, Mean Corpuscular Volume 74.4, Mean Corpuscular Hemoglobin 23.7, Mean Corpuscular Hemoglobin Concent 31.9, Mean Platelet Volume 9.4, Neutrophils (%) (Auto) 61.3, Lymphocytes (%) (Auto) 26.9, Monocytes (%) (Auto) 9.3, Eosinophils (%) (Auto) 1.7, Basophils (%) (Auto) 0.4, Neutrophils # (Auto) 5.84, Lymphocytes # (Auto) 2.57, Monocytes # (Auto) 0.89, Eosinophils # (Auto) 0.16, Basophils # (Auto) 0.04 05/26/16 18:15 Test 05/26/16 18:05 05/26/16 18:10 05/26/16 18:15 05/26/16 18:27 Influenza Type A Antigen Neg for Influ A (NEG) Influenza Type B Antigen Neg for Influ B (NEG) White Blood Count 9.54 K/uL (4.8-10.8) Red Blood Count 4.64 M/uL (4.2-5.4) Hemoglobin 11.0 g/dL (12.0-16.0) Hematocrit 34.5 % (37-47) Mean Corpuscular Volume 74.4 fL (80-100) Mean Corpuscular Hemoglobin 23.7 pg (25-34) Mean Corpuscular Hemoglobin Concent 31.9 g/dl (32-36) Platelet Count 456 K/uL (130-400) Mean Platelet Volume 9.4 fL (7.4-10.4) Neutrophils (%) (Auto) 61.3 % Lymphocytes (%) (Auto) 26.9 % Monocytes (%) (Auto) 9.3 % Eosinophils (%) (Auto) 1.7 % Basophils (%) (Auto) 0.4 % Neutrophils # (Auto) 5.84 K/uL (1.4-6.5) Lymphocytes # (Auto) 2.57 K/uL (1.2-3.4) Monocytes # (Auto) 0.89 K/uL (0.11-0.59) Eosinophils # (Auto) 0.16 K/uL (0-0.5) Basophils # (Auto) 0.04 K/uL (0-0.2) RDW Standard Deviation 42.3 fL (36.4-46.3) RDW Coefficient of Variation 15.7 % (11.5-14.5) Immature Granulocyte % (Auto) 0.4 % Immature Granulocyte # (Auto) 0.04 K/uL (0.00-0.02) Anion Gap 9.0 mmol/L (3-11) Est Creatinine Clear Calc Drug Dose 116.0 ml/min Estimated GFR () 126.0 Estimated GFR (Non- 108.7 BUN/Creatinine Ratio 3.4 (10-20) Calcium Level 8.4 mg/dl (8.5-10.1) Magnesium Level 2.1 mg/dl (1.8-2.4) Total Bilirubin 0.2 mg/dl (0.2-1) Aspartate Amino Transf (AST/SGOT) 10 U/L (15-37) Alanine Aminotransferase (ALT/SGPT) 17 U/L (12-78) Alkaline Phosphatase 97 U/L (45-117) Total Creatine Kinase 83 U/L (26-192) Creatine Kinase MB < 0.5 ng/ml (0.5-3.6) Creatine Kinase MB Ratio (0-3.0) Total Protein 7.2 gm/dl (6.4-8.2) Albumin 3.5 gm/dl (3.4-5.0) Globulin 3.7 gm/dl (2.5-4.0) Albumin/Globulin Ratio 0.9 (0.9-2) Thyroid Stimulating Hormone (TSH) 1.840 uIu/ml (0.300-4.500) Bedside D-Dimer > 450 ng/mlFEU (0-450) Test 05/26/16 19:15 05/26/16 19:32 05/26/16 19:43 Urine Color YELLOW Urine Appearance CLEAR (CLEAR) Urine pH 7.5 (4.5-7.5) Urine Specific [place] 1.000 (1.000-1.030) Urine Protein NEG (NEG) Urine Glucose (UA) NEG (NEG) Urine Ketones NEG (NEG) Urine Occult Blood NEG (NEG) Urine Nitrite NEG (NEG) Urine Bilirubin NEG (NEG) Urine Urobilinogen NEG (NEG) Urine Leukocyte Esterase NEG (NEG) Prothrombin Time 10.4 SECONDS (9.0-12.0) Prothromb Time International Ratio 1.0 (0.9-1.1) Activated Partial Thromboplast Time 29.3 SECONDS (21.0-31.0) Partial Thromboplastin Ratio 1.1 Bedside Troponin I 0.000 ng/ml (0-0.045) Medications Administered Medications (Trade) Dose Ordered Sig/Dominguez Route Start Time Stop Time Status Last Admin Dose Admin Aspirin (Aspirin Chew) 324 mg NOW STAT PO 05/26/16 18:07 05/26/16 18:11 DC 05/26/16 18:38 324 MG Medical Decision Patient was seen and evaluated as above. After obtaining a thorough history and physical examination IV access was obtained and the above workup was initiated. There was concern for pulmonary embolism and myocardial infarction therefore attention was directed at these regions. Stat EKG revealed sinus rhythm with marked sinus arrhythmia, rate of 70 bpm. There are no priors for comparison. On this EKG there are no evidences of ectopy or ischemic change. Patient's initial point of care d-dimer was elevated. Initial troponin was negative. Due to the elevated d-dimer, yet stable chest x-ray, patient was sent to CT for potential pulmonary embolism. Benefits versus risk was discussed with the patient. This did not reveal any pulmonary embolism. Incidental findings discussed with patient and regarding CT follow-up. Patient was given aspirin but declined any pain medication. Her vital signs are stable. There is no leukocytosis, but slight anemia. This will not require any intervention. There are abnormalities noted within the blood work that her nonemergent, these were discussed with the patient and she indicated that she just have blood work done 2 weeks ago with her family doctor. I do believe this is appropriate. CMP reveals decreased BUN, low calcium, low AST. Troponin negative 2. TSH within normal limits. Urine negative. Point care test negative. Patient negative for flu. I do not suspect any emergent cause of the patient's symptoms at this time. She was educated upon today's findings as well as management. She was instructed to follow-up with her family doctor regarding today's visit. She had questions answered prior to discharge, was educated upon worrisome symptoms in which to return and was discharged home in good condition. In the evaluation treatment this patient the following differential diagnoses were entertained: Myocardial infarction, pulmonary embolism, costochondritis, pleurisy, pericarditis, among others. Impression Primary Impression: Chest wall pain Additional Impressions: Anemia Pulmonary nodule less than 6 cm determined by computed tomography of lung Departure Information Dispostion Home / Self-Care Condition GOOD Referrals Farhat Moura D.O. (PCP) Patient Instructions My [facility] Additional Instructions You were seen in the emergency department for chest pain. We have ruled out emergent causes at this time. It is recommended he follow-up with her family doctor by calling their office first thing tomorrow morning to schedule follow-up. Please return to emergency department with any new/concerning symptoms. We are here 24 7 for any questions, concerns. Please refer to the nodule finding below, and discussed this with your family doctor. CT of CHEST: Groundglass densities within the lower lobes posteriorly favor mild dependent change. A 3.7 mm pulmonary nodule within the right middle lobe on image 60. A 5 mm nodule within the lingula on image 41. Subcentimeter pulmonary nodules with the largest in the lingula measuring 5 mm. Please refer to the chart below for recommended follow-up. Please refer to below summary of Fleischner criteria recommendations for follow-up of incidental CT nodules (Bhanu Bains, Guidelines for management of small pulmonary nodules detected on CT scans: A statement from the Fleischner Society, Radiology 237: [phone].) Low Risk Patient: Minimal or no smoking or other known risk factors for malignancy <=4 mm: No follow-up needed. >4-6 mm: Initial follow-up CT at 12 months; if unchanged, no further follow-up. >6-8 mm: Initial follow-up CT at 6-12 months then at 18-24 months if no change. >8 mm: Follow-up CT at \\R\\3, 9, 24 months, or PET and/or biopsy. High Risk Patient: History of smoking or other known risk factors <=4 mm: Follow-up at 12 months; if unchanged, no further follow-up. >4-6 mm: Initial follow-up CT at 6-12 months then at 18-24 months if no change. >6-8 mm: Initial follow-up CT at 3-6 months then at 9-12 and 24 months if no change. >8 mm: Same as low risk patient. Note: Nodule size measured as average of length and width. Ground glass or partly solid nodules may require longer follow-up to exclude indolent adenocarcinoma. Electronically signed by: Clement Villegas M.D. 05/26/2016 7:37 PM Problem Qualifiers
[2016-05-26 20:55] VITALS: BP 124/77; PULSE 84; O2SAT 97
== END 2016-05-26 20:56 | disposition home or self-care (01) ==
LOC: C.EDB 17:20 → C.EDA 20:56
DX: R07.89 Other chest pain (principal); D64.9 Anemia, unspecified; R91.1 Solitary pulmonary nodule; K21.9 Gastro-esophageal reflux disease without esophagitis; Z87.891 Personal history of nicotine dependence; Z88.0 Allergy status to penicillin; Z88.1 Allergy status to other antibiotic agents; Z88.2 Allergy status to sulfonamides; Z88.8 Allergy status to other drugs, medicaments and biological substances; Z80.9 Family history of malignant neoplasm, unspecified; Z82.49 Family history of ischemic heart disease and other diseases of the circulatory system